=== PATIENT | female | born 1975 | race Caucasian/White ===

== ENCOUNTER 2019-05-12 13:54 | Inpatient (IN) ==
[2019-05-12] MEDS ORDERED: HYDROmorphone 2 MG/1 ML VIAL IV STA (14:50)
[2019-05-12] MEDS ORDERED: ONDANSETRON 4 MG/2 ML VIAL IV STA (14:50)
[2019-05-12] MEDS ORDERED: SODIUM CHLORIDE 0.9% 1,000 ML IV STA (14:50)
[2019-05-12 15:00] LABS: Basophils # 0.1 10*3/uL (0.0-0.2); Basophils % 0.6 % (0.0-0.8); Eosinophils # 0.1 10*3/uL (0.0-0.87); Eosinophils % 0.4 % (0.00-10.9); Hematocrit 51.3 VOL% (35.7-47.0); Hemoglobin 17.7 GM/DL (12.0-16.0); Immature Granulocytes % 0.6 %; Immature Granulocytes Absolute 0.09 #; Lymphocytes # 1.8 10*3/uL (1.4-4.0); Lymphocytes % 12.5 % (21.3-54.2); Mean Corpuscular HGB Conc 34.5 GM/DL (32-36); Mean Corpuscular Volume 100.4 FL (87-102); Mean Platelet Volume 8.7 FL (9.6-12.0); Monocytes % 5.5 % (1.7-12.7); Neutrophils % 80.4 % (38.7-73.9); Platelet Count 355 T/CUMM (130-400); Red Blood Count 5.11 MC/CUMM (3.8-5.5); Red Cell Distribution Width 15.9 % (9.3-17.3); White Blood Count 14.6 T/CUMM (4-12)
[2019-05-12 15:21] LABS: Albumin 3.3 G/DL (3.4-5.0); Bilirubin,Total 0.7 MG/DL (0.2-1.0); Calcium 9.2 MG/DL (8.5-10.1); Osmolality,Calculated 269.1 MOS/KG (273-304); Total Protein 7.8 G/DL (6.4-8.3)
[2019-05-12] MEDS: DEXT 5% NACL 0.45% KCL 20 MEQ 20 MEQ/1,000 ML BAG IV SCH (20:32)
[2019-05-12] MEDS: HYDROmorphone 2 MG/1 ML VIAL IV PRN (20:32)
[2019-05-12] MEDS: ENOXAPARIN 40 MG/0.4 ML SYRINGE SUBCUT SCH (20:33)
[2019-05-12] MEDS: PANTOPRAZOLE 40 MG VIAL IV SCH (20:40)
[2019-05-13] MEDS: HYDROmorphone 2 MG/1 ML VIAL IV PRN ×6 (01:43→22:23)
[2019-05-13] MEDS: LABETALOL 20 MG/4 ML SYRINGE IV PRN (04:16)
[2019-05-13] MEDS: DEXT 5% NACL 0.45% KCL 20 MEQ 20 MEQ/1,000 ML BAG IV SCH ×3 (04:20→17:12)
[2019-05-13 06:31] LABS: Basophils # 0.1 10*3/uL (0.0-0.2); Basophils % 0.6 % (0.0-0.8); Eosinophils # 0.2 10*3/uL (0.0-0.87); Eosinophils % 1.4 % (0.00-10.9); Hematocrit 42.9 VOL% (35.7-47.0); Hemoglobin 14.3 GM/DL (12.0-16.0); Immature Granulocytes % 0.8 %; Immature Granulocytes Absolute 0.08 #; Lymphocytes # 1.7 10*3/uL (1.4-4.0); Lymphocytes % 16.5 % (21.3-54.2); Mean Corpuscular HGB Conc 33.3 GM/DL (32-36); Mean Corpuscular Volume 103.9 FL (87-102); Mean Platelet Volume 8.9 FL (9.6-12.0); Monocytes % 7.1 % (1.7-12.7); Neutrophils % 73.6 % (38.7-73.9); Platelet Count 279 T/CUMM (130-400); Red Blood Count 4.13 MC/CUMM (3.8-5.5); White Blood Count 10.4 T/CUMM (4-12)
[2019-05-13 06:48] LABS: Calcium 8.2 MG/DL (8.5-10.1)
[2019-05-13] MEDS: PANTOPRAZOLE 40 MG VIAL IV SCH ×2 (08:27→21:35)
[2019-05-13] MEDS: ENOXAPARIN 40 MG/0.4 ML SYRINGE SUBCUT SCH (17:13)
[2019-05-13 17:19] LABS: Apearance,Urine CLEAR (Clear); Bilirubin,Urine Negative (Negative); Blood, Urine Negative (Negative); Glucose,Urine (UA) Negative (Negative); Ketones,Urine 20 mg/dL (Negative); Mucus,Urine Few /LPF (Occasional); Nitrite,Urine Negative (Negative); Protein,Urine Negative; RBC,Urine 2 /HPF (0-4); Squamous Epithelial Cell,Urine Occasional /HPF (0-10); Urine Color Amber (Yellow); Urine Specific Gravity 1.053 (1.001-1.035); Urine Urobilinogen < 2.0 EU/DL (0.2-1.0); WBC,Urine 2 /HPF (0-6)
[2019-05-14] MEDS: DEXT 5% NACL 0.45% KCL 20 MEQ 20 MEQ/1,000 ML BAG IV SCH ×3 (01:31→17:16)
[2019-05-14] MEDS: HYDROmorphone 2 MG/1 ML VIAL IV PRN ×6 (02:24→21:12)
[2019-05-14 05:06] LABS: Basophils % 0.5 % (0.0-0.8); Eosinophils # 0.1 10*3/uL (0.0-0.87); Eosinophils % 1.6 % (0.00-10.9); Hematocrit 39.2 VOL% (35.7-47.0); Hemoglobin 13.4 GM/DL (12.0-16.0); Immature Granulocytes % 0.7 %; Immature Granulocytes Absolute 0.06 #; Lymphocytes # 1.2 10*3/uL (1.4-4.0); Lymphocytes % 13.5 % (21.3-54.2); Mean Corpuscular HGB Conc 34.2 GM/DL (32-36); Mean Corpuscular Volume 101.6 FL (87-102); Mean Platelet Volume 8.6 FL (9.6-12.0); Monocytes % 8.6 % (1.7-12.7); Neutrophils % 75.1 % (38.7-73.9); Platelet Count 229 T/CUMM (130-400); Red Blood Count 3.86 MC/CUMM (3.8-5.5); Red Cell Distribution Width 15.4 % (9.3-17.3); White Blood Count 8.5 T/CUMM (4-12)
[2019-05-14 05:43] LABS: Calcium 8.2 MG/DL (8.5-10.1); Osmolality,Calculated 272.7 MOS/KG (273-304)
[2019-05-14] MEDS: PANTOPRAZOLE 40 MG VIAL IV SCH ×2 (08:32→20:03)
[2019-05-14] MEDS: ONDANSETRON 4 MG/2 ML VIAL IV PRN ×2 (10:48→20:01)
[2019-05-14] MEDS: LABETALOL 20 MG/4 ML SYRINGE IV PRN ×2 (12:27→21:28)
[2019-05-15] MEDS: HYDROmorphone 2 MG/1 ML VIAL IV PRN ×8 (00:14→21:32)
[2019-05-15] MEDS: DEXT 5% NACL 0.45% KCL 20 MEQ 20 MEQ/1,000 ML BAG IV SCH ×3 (01:21→15:16)
[2019-05-15] MEDS: LABETALOL 20 MG/4 ML SYRINGE IV PRN ×3 (04:16→18:32)
[2019-05-15] MEDS: ONDANSETRON 4 MG/2 ML VIAL IV PRN (07:29)
[2019-05-15] MEDS ORDERED: LACTATED RINGERS 1,000 ML IV SCH (08:00)
[2019-05-15] MEDS: PANTOPRAZOLE 40 MG VIAL IV SCH ×2 (08:11→21:31)
[2019-05-15] MEDS: ENOXAPARIN 40 MG/0.4 ML SYRINGE SUBCUT SCH (08:46)
[2019-05-15] MEDS: OLMESARTAN 20 MG TABLET PO SCH (21:30)
[2019-05-16] MEDS: HYDROmorphone 2 MG/1 ML VIAL IV PRN ×8 (00:12→20:49)
[2019-05-16] MEDS: DEXT 5% NACL 0.45% KCL 20 MEQ 20 MEQ/1,000 ML BAG IV SCH ×4 (00:14→19:59)
[2019-05-16 05:25] LABS: Basophils # 0.1 10*3/uL (0.0-0.2); Basophils % 0.9 % (0.0-0.8); Eosinophils # 0.2 10*3/uL (0.0-0.87); Eosinophils % 2.8 % (0.00-10.9); Hematocrit 42.4 VOL% (35.7-47.0); Hemoglobin 14.5 GM/DL (12.0-16.0); Immature Granulocytes % 0.7 %; Immature Granulocytes Absolute 0.05 #; Lymphocytes # 1.4 10*3/uL (1.4-4.0); Lymphocytes % 18.4 % (21.3-54.2); Mean Corpuscular HGB Conc 34.2 GM/DL (32-36); Mean Corpuscular Volume 101.9 FL (87-102); Mean Platelet Volume 8.8 FL (9.6-12.0); Neutrophils % 65.2 % (38.7-73.9); Platelet Count 260 T/CUMM (130-400); Red Blood Count 4.16 MC/CUMM (3.8-5.5); Red Cell Distribution Width 15.1 % (9.3-17.3); White Blood Count 7.6 T/CUMM (4-12)
[2019-05-16 05:42] LABS: Calcium 8.9 MG/DL (8.5-10.1); Osmolality,Calculated 272.7 MOS/KG (273-304)
[2019-05-16] MEDS: LABETALOL 20 MG/4 ML SYRINGE IV PRN ×3 (06:00→20:45)
[2019-05-16] MEDS: OLMESARTAN 20 MG TABLET PO SCH (08:53)
[2019-05-16] MEDS: PANTOPRAZOLE 40 MG VIAL IV SCH ×2 (08:57→20:47)
[2019-05-16] MEDS: ENOXAPARIN 40 MG/0.4 ML SYRINGE SUBCUT SCH (08:57)
[2019-05-16] MEDS ORDERED: MAGNESIUM SULF RIDER 2 GM in PREMIX 1 EACH IV PRN (10:26)
[2019-05-16] MEDS ORDERED: MAGNESIUM SULF RIDER 4 GM in PREMIX 1 EACH IV PRN (10:26)
[2019-05-16] MEDS: ONDANSETRON 4 MG/2 ML VIAL IV PRN (12:11)
[2019-05-17] MEDS: HYDROmorphone 2 MG/1 ML VIAL IV PRN ×5 (00:46→14:31)
[2019-05-17] MEDS: DEXT 5% NACL 0.45% KCL 20 MEQ 20 MEQ/1,000 ML BAG IV SCH ×3 (03:49→22:50)
[2019-05-17 06:43] LABS: Calcium 8.4 MG/DL (8.5-10.1); Osmolality,Calculated 271.7 MOS/KG (273-304)
[2019-05-17] MEDS ORDERED: OLMESARTAN HYDROCHLOROTHIAZIDE PO SCH (09:00)
[2019-05-17] MEDS: OLMESARTAN 20 MG TABLET PO SCH (10:48)
[2019-05-17] MEDS: POTASSIUM CHLORIDE 20 MEQ TABLET PO PRN ×3 (10:48→16:31)
[2019-05-17] MEDS: hydroCHLOROthiazide 12.5 MG CAPSULE PO SCH (10:48)
[2019-05-17] MEDS: ENOXAPARIN 40 MG/0.4 ML SYRINGE SUBCUT SCH (10:49)
[2019-05-17] MEDS: ONDANSETRON 4 MG/2 ML VIAL IV PRN (11:10)
[2019-05-17] MEDS: PANTOPRAZOLE 40 MG VIAL IV SCH ×2 (11:13→20:39)
[2019-05-17] MEDS: LABETALOL 20 MG/4 ML SYRINGE IV PRN (13:06)
[2019-05-17] MEDS ORDERED: HYDROmorphone 2 MG/1 ML VIAL IV ONE (21:45)
[2019-05-18] MEDS: DEXT 5% NACL 0.45% KCL 20 MEQ 20 MEQ/1,000 ML BAG IV SCH ×2 (01:51→05:02)
[2019-05-18] MEDS: hydroCHLOROthiazide 12.5 MG CAPSULE PO SCH (07:50)
[2019-05-18] MEDS: OLMESARTAN 20 MG TABLET PO SCH (07:50)
[2019-05-18 08:14] VITALS: BP 150/90
== END 2019-05-18 08:45 | disposition home or self-care (01) | DRG 440 ==
LOC: N.ED 13:54 → SUATTDRO 17:09 → N.EDINP 17:09 → N.5E 17:54
PROVIDERS: ADMIT Internal Medicine Infectious Disease; ATTEND Internal Medicine

== ENCOUNTER 2019-06-02 13:08 | Inpatient (IN) ==
[2019-06-02 13:40] LABS: Basophils # 0.1 10*3/uL (0.0-0.2); Basophils % 0.7 % (0.0-0.8); Hematocrit 40.7 VOL% (35.7-47.0); Hemoglobin 13.9 GM/DL (12.0-16.0); Immature Granulocytes % 1.1 %; Immature Granulocytes Absolute 0.24 #; Lymphocytes % 4.6 % (21.3-54.2); Mean Corpuscular HGB Conc 34.2 GM/DL (32-36); Mean Platelet Volume 8.7 FL (9.6-12.0); Neutrophils % 89.6 % (38.7-73.9); Platelet Count 287 T/CUMM (130-400); Red Blood Count 4.07 MC/CUMM (3.8-5.5); Red Cell Distribution Width 14.7 % (9.3-17.3); White Blood Count 21.4 T/CUMM (4-12)
[2019-06-02 13:59] LABS: Band Neutrophils 1 % (0-10); Lymphocytes 7 % (20-55); Platelet Estimate Adequate; Segmented Neutrophils 86 % (50-85); Total Cells Counted 100
[2019-06-02 14:00] LABS: Albumin 2.7 G/DL (3.4-5.0); Bilirubin,Total 0.6 MG/DL (0.2-1.0); Calcium 8.8 MG/DL (8.5-10.1); Osmolality,Calculated 269.1 MOS/KG (273-304); Polychromasia Slight; Total Protein 7.3 G/DL (6.4-8.3)
[2019-06-02 14:06] LABS: Apearance,Urine CLOUDY (Clear); Bacteria,Urine Few /HPF (Few); Barbiturates Screen,Urine Negative (Negative); Benzodiazepines Screen,Urine Negative (Negative); Bilirubin,Urine Negative (Negative); Blood, Urine Moderate mg/dL (Negative); Cannabinoid Screen,Urine Negative (Negative); Glucose,Urine (UA) Negative (Negative); Ketones,Urine Negative (Negative); Mucus,Urine Many /LPF (Occasional); Nitrite,Urine Negative (Negative); Opiate Screen,Urine Positive (Negative); Phencyclidine Screen,Urine Negative (Negative); Protein,Urine 100 MG/DL; RBC,Urine 72 /HPF (0-4); Urine Color Yellow (Yellow); Urine Specific Gravity 1.021 (1.001-1.035); Urine Urobilinogen < 2.0 EU/DL (0.2-1.0); WBC,Urine 3281 /HPF (0-6)
[2019-06-02] MEDS ORDERED: SODIUM CHLORIDE 0.9% 2,150 ML IV ONE (14:30)
[2019-06-02] MEDS ORDERED: ONDANSETRON 4 MG/2 ML VIAL ONE (15:26)
[2019-06-02] MEDS ORDERED: ONDANSETRON 4 MG/2 ML VIAL IV STA (15:29)
[2019-06-02] MEDS: PIPERACILLIN/TAZOBACTAM 3,375 MG in SODIUM CHLORIDE 0.9% 100 ML IV SCH ×2 (15:32→23:35)
[2019-06-02] MEDS ORDERED: ACETAMINOPHEN 500 MG TABLET ONE (16:01)
[2019-06-02] MEDS ORDERED: ACETAMINOPHEN 500 MG TABLET PO STA (16:03)
[2019-06-02] MEDS ORDERED: GENTAMICIN INJ 330 MG in SODIUM CHLORIDE 0.9% 100 ML IV SCH (17:00)
[2019-06-02] MEDS: GENTAMICIN INJ 420 MG in SODIUM CHLORIDE 0.9% 100 ML IV SCH (17:03)
[2019-06-02] MEDS ORDERED: DOCUSATE SODIUM 100 MG CAPSULE PO PRN (17:25)
[2019-06-02] MEDS ORDERED: BISACODYL 5 MG TABLET PO PRN (17:25)
[2019-06-02] MEDS ORDERED: traZODone 50 MG TABLET PO PRN (17:25)
[2019-06-02] MEDS ORDERED: ACETAMINOPHEN 325 MG TABLET PO PRN (17:25)
[2019-06-02] MEDS ORDERED: diphenhydrAMINE CAP 25 MG CAPSULE PO PRN (17:25)
[2019-06-02] MEDS ORDERED: ZALEPLON 5 MG CAPSULE PO PRN (17:25)
[2019-06-02] MEDS ORDERED: MORPHINE 4 MG/1 ML VIAL IV PRN (17:25)
[2019-06-02] MEDS ORDERED: NICOTINE 21 MG/24 HR PATCH TRANSDERM PRN (17:25)
[2019-06-02] MEDS: SODIUM CHLORIDE 0.9% 1,000 ML IV SCH (17:52)
[2019-06-02] MEDS: ENOXAPARIN 40 MG/0.4 ML SYRINGE SUBCUT SCH (20:48)
[2019-06-03] MEDS: SODIUM CHLORIDE 0.9% 1,000 ML IV SCH ×3 (05:15→19:52)
[2019-06-03 05:22] LABS: Basophils # 0.1 10*3/uL (0.0-0.2); Basophils % 0.5 % (0.0-0.8); Eosinophils % 0.1 % (0.00-10.9); Hematocrit 32.5 VOL% (35.7-47.0); Hemoglobin 10.7 GM/DL (12.0-16.0); Immature Granulocytes % 1.2 %; Immature Granulocytes Absolute 0.16 #; Lymphocytes # 0.9 10*3/uL (1.4-4.0); Lymphocytes % 6.6 % (21.3-54.2); Mean Corpuscular HGB Conc 32.9 GM/DL (32-36); Mean Corpuscular Volume 100.9 FL (87-102); Mean Platelet Volume 9.3 FL (9.6-12.0); Monocytes % 3.6 % (1.7-12.7); Platelet Count 192 T/CUMM (130-400); Red Blood Count 3.22 MC/CUMM (3.8-5.5); Red Cell Distribution Width 14.9 % (9.3-17.3); White Blood Count 13.3 T/CUMM (4-12)
[2019-06-03 05:41] LABS: Calcium 7.2 MG/DL (8.5-10.1)
[2019-06-03 05:47] LABS: Band Neutrophils 7 % (0-10); Lymphocytes 10 % (20-55); Segmented Neutrophils 79 % (50-85); Total Cells Counted 100
[2019-06-03 05:48] LABS: Anisocytosis 1+; Platelet Estimate Adequate
[2019-06-03] MEDS: PIPERACILLIN/TAZOBACTAM 3,375 MG in SODIUM CHLORIDE 0.9% 100 ML IV SCH ×3 (06:37→23:35)
[2019-06-03] MEDS: ONDANSETRON 4 MG/2 ML VIAL IV PRN ×3 (07:01→21:00)
[2019-06-03] MEDS: OLMESARTAN 20 MG TABLET PO SCH (08:35)
[2019-06-03] MEDS: hydroCHLOROthiazide 25 MG TABLET PO SCH (08:35)
[2019-06-03] MEDS: PANTOPRAZOLE 40 MG TABLET PO SCH (08:35)
[2019-06-03] MEDS ORDERED: PROMETHAZINE 25 MG/1 ML VIAL IM PRN (12:22)
[2019-06-03] MEDS: GENTAMICIN INJ 420 MG in SODIUM CHLORIDE 0.9% 100 ML IV SCH (18:23)
[2019-06-03] MEDS ORDERED: LORazepam 2 MG/1 ML VIAL IV ONE (19:54)
[2019-06-03] MEDS: ENOXAPARIN 40 MG/0.4 ML SYRINGE SUBCUT SCH (20:59)
[2019-06-04] MEDS: ONDANSETRON 4 MG/2 ML VIAL IV PRN (03:15)
[2019-06-04] MEDS: SODIUM CHLORIDE 0.9% 1,000 ML IV SCH (04:28)
[2019-06-04] MEDS: PIPERACILLIN/TAZOBACTAM 3,375 MG in SODIUM CHLORIDE 0.9% 100 ML IV SCH ×2 (06:13→13:53)
[2019-06-04 06:37] LABS: Calcium 6.6 MG/DL (8.5-10.1); Osmolality,Calculated 269.8 MOS/KG (273-304)
[2019-06-04] MEDS: OLMESARTAN 20 MG TABLET PO SCH (08:33)
[2019-06-04] MEDS: hydroCHLOROthiazide 25 MG TABLET PO SCH (08:33)
[2019-06-04] MEDS: PANTOPRAZOLE 40 MG TABLET PO SCH (08:35)
[2019-06-04] MEDS: POTASSIUM CHLORIDE 20 MEQ TABLET PO SCH ×2 (08:37→21:14)
[2019-06-04] MEDS: GENTAMICIN INJ 420 MG in SODIUM CHLORIDE 0.9% 100 ML IV SCH (19:12)
[2019-06-04] MEDS ORDERED: cefTRIAXone 1,000 MG in SYRINGE 1 EACH IV SCH (21:00)
[2019-06-04] MEDS: ENOXAPARIN 40 MG/0.4 ML SYRINGE SUBCUT SCH (21:14)
[2019-06-05] MEDS: SODIUM CHLORIDE 0.9% 1,000 ML IV SCH ×3 (03:00→09:52)
[2019-06-05] MEDS: hydroCHLOROthiazide 25 MG TABLET PO SCH (08:22)
[2019-06-05] MEDS: PANTOPRAZOLE 40 MG TABLET PO SCH (08:22)
[2019-06-05] MEDS: OLMESARTAN 20 MG TABLET PO SCH (08:22)
[2019-06-05 08:47] VITALS: BP 141/75
== END 2019-06-05 10:29 | disposition home or self-care (01) | DRG 690 ==
LOC: N.ED 13:08 → SUATTDRO 17:25 → N.EDINP 17:25 → N.5E 18:09
PROVIDERS: ADMIT Nurse Practitioner Adult Health; ATTEND Internal Medicine Geriatric Medicine

== ENCOUNTER 2019-09-24 11:31 | Inpatient (IN) ==
[2019-09-24 12:43] LABS: Basophils # 0.1 10*3/uL (0.0-0.2); Basophils % 0.7 % (0.0-0.8); Eosinophils # 0.2 10*3/uL (0.0-0.87); Eosinophils % 1.7 % (0.00-10.9); Hematocrit 43.4 VOL% (35.7-47.0); Hemoglobin 14.7 GM/DL (12.0-16.0); Immature Granulocytes % 0.6 %; Immature Granulocytes Absolute 0.07 #; Lymphocytes # 2.1 10*3/uL (1.4-4.0); Mean Corpuscular HGB Conc 33.9 GM/DL (32-36); Mean Corpuscular Volume 106.4 FL (87-102); Mean Platelet Volume 8.8 FL (9.6-12.0); Monocytes % 5.5 % (1.7-12.7); Neutrophils % 72.5 % (38.7-73.9); Platelet Count 354 T/CUMM (130-400); Red Blood Count 4.08 MC/CUMM (3.8-5.5); Red Cell Distribution Width 15.2 % (9.3-17.3); White Blood Count 10.8 T/CUMM (4-12)
[2019-09-24 12:44] LABS: Apearance,Urine CLOUDY (Clear); Bacteria,Urine Many /HPF (Few); Bilirubin,Urine Negative (Negative); Blood, Urine Negative (Negative); Glucose,Urine (UA) Negative (Negative); Hyaline Casts,Urine 14 /LPF (0-3); Ketones,Urine 20 mg/dL (Negative); Mucus,Urine Few /LPF (Occasional); Nitrite,Urine Positive (Negative); Protein,Urine Negative; RBC,Urine 53 /HPF (0-4); Squamous Epithelial Cell,Urine Moderate /HPF (0-10); Urine Color Amber (Yellow); Urine Specific Gravity 1.014 (1.001-1.035); Urine Urobilinogen < 2.0 EU/DL (0.2-1.0); WBC,Urine 1146 /HPF (0-6)
[2019-09-24] MEDS ORDERED: SODIUM CHLORIDE 0.9% 1,000 ML IV STA (12:50)
[2019-09-24] MEDS ORDERED: cefTRIAXone 1,000 MG in SODIUM CHLORIDE 0.9% 100 ML IV STA (12:50)
[2019-09-24] MEDS ORDERED: ONDANSETRON 4 MG/2 ML VIAL IV STA (12:52)
[2019-09-24] MEDS ORDERED: MORPHINE 4 MG/1 ML VIAL IV STA (12:52)
[2019-09-24 13:00] LABS: Albumin 3.6 G/DL (3.4-5.0); Bilirubin,Total 0.4 MG/DL (0.2-1.0); Calcium 9.2 MG/DL (8.5-10.1); Osmolality,Calculated 265.4 MOS/KG (273-304); Total Protein 7.6 G/DL (6.4-8.3)
[2019-09-24] MEDS ORDERED: NICOTINE 21 MG/24 HR PATCH TRANSDERM PRN (13:47)
[2019-09-24] MEDS ORDERED: ONDANSETRON 4 MG/2 ML VIAL IV PRN (13:47)
[2019-09-24] MEDS ORDERED: ACETAMINOPHEN 325 MG TABLET PO PRN (13:47)
[2019-09-24] MEDS ORDERED: DOCUSATE SODIUM 100 MG CAPSULE PO PRN (13:47)
[2019-09-24 14:15] LABS: Risk Ratio 4.95; Thyroid Stimulating Hormone 0.583 uIU/ml (0.358-3.74); VLDL CHOLESTEROL 43.6 MG/DL
[2019-09-24] MEDS: ENOXAPARIN 40 MG/0.4 ML SYRINGE SUBCUT SCH (16:14)
[2019-09-24] MEDS: SODIUM CHLORIDE 0.9% 1,000 ML IV SCH (16:15)
[2019-09-24] MEDS: MORPHINE 4 MG/1 ML VIAL IV PRN ×2 (17:46→22:54)
[2019-09-24] MEDS: PANTOPRAZOLE 40 MG VIAL IV SCH (21:03)
[2019-09-25] MEDS: SODIUM CHLORIDE 0.9% 1,000 ML IV SCH ×6 (02:28→20:51)
[2019-09-25] MEDS ORDERED: KETOROLAC 30 MG/1 ML VIAL IV ONE (02:38)
[2019-09-25 05:32] LABS: Basophils # 0.1 10*3/uL (0.0-0.2); Basophils % 0.7 % (0.0-0.8); Eosinophils # 0.3 10*3/uL (0.0-0.87); Eosinophils % 3.4 % (0.00-10.9); Hematocrit 36.7 VOL% (35.7-47.0); Hemoglobin 12.4 GM/DL (12.0-16.0); Immature Granulocytes % 0.7 %; Immature Granulocytes Absolute 0.05 #; Lymphocytes # 1.8 10*3/uL (1.4-4.0); Lymphocytes % 23.4 % (21.3-54.2); Mean Corpuscular HGB Conc 33.8 GM/DL (32-36); Mean Corpuscular Volume 106.4 FL (87-102); Mean Platelet Volume 8.9 FL (9.6-12.0); Monocytes % 8.1 % (1.7-12.7); Neutrophils % 63.7 % (38.7-73.9); Platelet Count 278 T/CUMM (130-400); Red Blood Count 3.45 MC/CUMM (3.8-5.5); Red Cell Distribution Width 15.1 % (9.3-17.3); White Blood Count 7.6 T/CUMM (4-12)
[2019-09-25 05:48] LABS: Calcium 8.2 MG/DL (8.5-10.1); Osmolality,Calculated 272.7 MOS/KG (273-304)
[2019-09-25] MEDS: MORPHINE 4 MG/1 ML VIAL IV PRN ×4 (08:35→22:33)
[2019-09-25] MEDS: PANTOPRAZOLE 40 MG VIAL IV SCH ×2 (09:04→20:49)
[2019-09-25] MEDS: cefTRIAXone 1,000 MG in SYRINGE 1 EACH IV SCH (09:04)
[2019-09-25] MEDS: KETOROLAC 15 MG/1 ML VIAL IV PRN ×3 (09:11→22:32)
[2019-09-25] MEDS: ENOXAPARIN 40 MG/0.4 ML SYRINGE SUBCUT SCH (13:41)
[2019-09-26] MEDS: MORPHINE 4 MG/1 ML VIAL IV PRN ×2 (02:12→06:13)
[2019-09-26] MEDS: KETOROLAC 15 MG/1 ML VIAL IV PRN ×2 (04:33→12:15)
[2019-09-26] MEDS: SODIUM CHLORIDE 0.9% 1,000 ML IV SCH ×2 (05:00→13:51)
[2019-09-26 05:22] LABS: Basophils # 0.1 10*3/uL (0.0-0.2); Basophils % 0.7 % (0.0-0.8); Eosinophils # 0.2 10*3/uL (0.0-0.87); Eosinophils % 2.1 % (0.00-10.9); Hemoglobin 12.9 GM/DL (12.0-16.0); Immature Granulocytes % 0.6 %; Immature Granulocytes Absolute 0.05 #; Lymphocytes # 1.4 10*3/uL (1.4-4.0); Lymphocytes % 15.8 % (21.3-54.2); Mean Corpuscular HGB Conc 34.9 GM/DL (32-36); Mean Corpuscular Volume 103.6 FL (87-102); Mean Platelet Volume 8.7 FL (9.6-12.0); Monocytes % 5.9 % (1.7-12.7); Neutrophils % 74.9 % (38.7-73.9); Platelet Count 262 T/CUMM (130-400); Red Blood Count 3.57 MC/CUMM (3.8-5.5); Red Cell Distribution Width 14.6 % (9.3-17.3); White Blood Count 8.7 T/CUMM (4-12)
[2019-09-26 05:50] LABS: Calcium 8.2 MG/DL (8.5-10.1)
[2019-09-26] MEDS: PANTOPRAZOLE 40 MG VIAL IV SCH (08:55)
[2019-09-26] MEDS: cefTRIAXone 1,000 MG in SYRINGE 1 EACH IV SCH (08:55)
[2019-09-26] MEDS ORDERED: OLMESARTAN 20 MG TABLET PO SCH (09:00)
[2019-09-26] MEDS ORDERED: hydroCHLOROthiazide 25 MG TABLET PO SCH (09:00)
[2019-09-26 11:12] VITALS: BP 152/107
[2019-09-26] MEDS: ENOXAPARIN 40 MG/0.4 ML SYRINGE SUBCUT SCH (13:51)
== END 2019-09-26 14:10 | disposition home or self-care (01) | DRG 689 ==
LOC: N.ED 11:31 → SUATTDRO 13:46 → N.EDINP 13:46 → N.3E 14:52
PROVIDERS: ADMIT Internal Medicine; ATTEND Internal Medicine Cardiovascular Disease